=== PATIENT | male | born 1985 | race Caucasian/White ===

== ENCOUNTER 2016-09-27 18:35 | Emergency (ER) | payer OTHER ==
[2016-09-27 19:30] LABS: BASOPHIL % 0.5 % (0-2); PLATELET COUNT 181 x10^3mcL (130-400); RED CELL DISTRIBUTION WIDTH 13.1 % (11.5-14.5)
[2016-09-27 19:35] LABS: CALCIUM 8.8 mg/dL (8.5-10.1); CARBON DIOXIDE 30.2 mmol/L (21-32); CHLORIDE SERUM 102 mmol/L (98-107); CREATININE SERUM 1.4 mg/dL (0.7-1.3); GFR1 > 60 mL/min; GLUCOSE SERUM 103 mg/dL (74-106); POTASSIUM SERUM 4.1 mmol/L (3.5-5.1); SODIUM SERUM 141 mmol/L (136-145)
[2016-09-27 19:39] LABS: ALBUMIN 4.5 g/dL (3.4-5.0); ALKALINE PHOSPHATASE 61 U/L (46-116); ALT/SGPT 54 U/L (16-63); AST/SGOT 24 U/L (15-37); BILIRUBIN TOTAL 0.56 mg/dL (0.20-1.00); MAGNESIUM 1.9 mg/dL (1.8-2.4)
[2016-09-27 19:39] LABS: AMPHETAMINE QUAL UR NONE DETECTED (NEG <=1000)
[2016-09-27 19:40] LABS: CHOLESTEROL 222 mg/dL (<200); TOTAL PROTEIN, SERUM 8.3 g/dL (6.4-8.2)
[2016-09-27 21:00] VITALS: BP 148/91
== END 2016-09-27 21:00 | disposition home or self-care (01) ==
LOC: ED 18:35
PROVIDERS: Specialist
DX: R20.9 Unspecified disturbances of skin sensation (principal)
CPT/HCPCS: 80307; 83880; G0480